=== PATIENT | male | born 1980 | race Caucasian/White ===

== ENCOUNTER 2017-09-09 22:01 | Emergency (ER) | payer SELFPAY | END 2017-09-09 22:50 | disposition home or self-care (01) | LOC: EDH 22:01 | DX: L02.211 Cutaneous abscess of abdominal wall (principal); Z88.6 Allergy status to analgesic agent; Z72.0 Tobacco use | CPT/HCPCS: 10060 ==

== ENCOUNTER 2017-10-11 19:49 | Emergency (ER) | payer SELFPAY | END 2017-10-11 22:37 | disposition home or self-care (01) | LOC: EDH 19:49 | DX: S92.152A Displaced avulsion fracture (chip fracture) of left talus, initial encounter for closed fracture (principal); Z88.6 Allergy status to analgesic agent; Z72.0 Tobacco use; X58.XXXA Exposure to other specified factors, initial encounter; Y93.89 Activity, other specified; Y92.89 Other specified places as the place of occurrence of the external cause; Y99.8 Other external cause status | CPT/HCPCS: 29515; 73610 ==

== ENCOUNTER 2020-06-12 21:21 | Emergency (ER) | payer SELFPAY ==
[2020-06-12] MEDS ORDERED: KETOROLAC TROMETHAMINE 60 MG/2 ML VIAL ONE (22:27)
== END 2020-06-12 22:42 | disposition home or self-care (01) ==
LOC: EDH 21:21
DX: S92.301A Fracture of unspecified metatarsal bone(s), right foot, initial encounter for closed fracture (principal); Z88.6 Allergy status to analgesic agent; X58.XXXA Exposure to other specified factors, initial encounter; Y93.89 Activity, other specified; Y92.098 Other place in other non-institutional residence as the place of occurrence of the external cause; Y99.8 Other external cause status
CPT/HCPCS: 73630; 96372; 99283; J1885

== ENCOUNTER 2024-07-01 19:07 | Emergency (ER) | payer OTHER ==
[~2024-07-01] VITALS: Ht 180.3 cm; Wt 122.5 kg
[2024-07-01 19:09] VITALS: TEMP 98.2
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
[2024-07-01] MEDS: HYDROcodone/APAP 5/325 1 TAB TABLET PO ONE (19:32)
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
[2024-07-01] MEDS ORDERED: CYCL10TA16 PO (20:37)
[2024-07-01 20:50] VITALS: BP 141/68; PULSE 88; RESP 16; O2SAT 98
== END 2024-07-01 20:57 | disposition home or self-care (01) ==
LOC: EDH 19:07
DX: S16.1XXA Strain of muscle, fascia and tendon at neck level, initial encounter (principal); S40.012A Contusion of left shoulder, initial encounter; R07.81 Pleurodynia; I10 Essential (primary) hypertension; Z88.6 Allergy status to analgesic agent; V89.2XXA Person injured in unspecified motor-vehicle accident, traffic, initial encounter; Y93.89 Activity, other specified; Y92.89 Other specified places as the place of occurrence of the external cause; Y99.8 Other external cause status
CPT/HCPCS: 71101; 72040; 73030; 73060; 99284